=== PATIENT | female | born 1995 | race African-American/Black ===

== ENCOUNTER 2019-01-31 21:04 | Emergency (ER) | payer SELFPAY ==
[~2019-01-31] VITALS: Ht 165.1 cm; Wt 99.2 kg
[2019-01-31] MEDS ORDERED: IBUPROFEN 600MG TABLET PO ONE (22:30)
[2019-01-31 23:18] VITALS: BP 129/89
== END 2019-01-31 23:19 | disposition home or self-care (01) ==
LOC: ER 21:04
DX: K12.2 Cellulitis and abscess of mouth (principal); K05.219 Aggressive periodontitis, localized, unspecified severity; K02.9 Dental caries, unspecified
CPT/HCPCS: 81025; 99283